=== PATIENT | male | born 1955 | race Caucasian/White ===

== ENCOUNTER 2017-06-11 09:09 | Observation (INO) | payer BC ==
[~2017-06-11 09:09] MED LIST: EPHEDrine SULFATE 50 MG/5 ML SYG; LIDOCAINE 2% (SDV) 5 ML INJ
[2017-06-11] MEDS ORDERED: CEFAZOLIN 2 GM/50 ML (PMX) 50 ML IVPB (10:30)
[2017-06-11] MEDS ORDERED: LACTATED RINGER'S 1,000 ML IV* (10:30)
[2017-06-11] MEDS ORDERED: SUCCINYLCHOLINE CHLORIDE 100 MG/5 ML SYG IV (10:52)
[2017-06-11] MEDS ORDERED: ROCURONIUM 50 MG INJ ×2 (10:52→14:32)
[2017-06-11] MEDS ORDERED: MIDAZOLAM 1 MG/ML 2 ML INJ (10:52)
[2017-06-11] MEDS ORDERED: PROPOFOL 20 ML (10:52)
[2017-06-11] MEDS ORDERED: CEFAZOLIN 1 GM INJ (11:14)
[2017-06-11] MEDS ORDERED: DEXAMETHASONE 4 MG/ML 1 ML INJ (11:29)
[2017-06-11] MEDS ORDERED: FAMOTIDINE 20 MG INJ (11:29)
[2017-06-11] MEDS ORDERED: ONDANSETRON 4 MG INJ (11:29)
[2017-06-11] MEDS ORDERED: ACETAMINOPHEN 1000MG/100ML IV 0 ML (11:29)
[2017-06-11] MEDS ORDERED: PHENYLephrine (100 MCG/ML) 5ML SYG (11:30)
[2017-06-11] MEDS ORDERED: VASOPRESSIN 20 UNITS INJ (11:38)
[2017-06-11] MEDS: BUPIVACAINE 0.25% (MPF) 30 ML INJ (11:39)
[2017-06-11] MEDS: GELATIN SIZE 100 SPONGE (11:39)
[2017-06-11] MEDS: LIDOCAINE 1%/EPI 30 ML INJ (11:39)
[2017-06-11] MEDS: BETAMET NA PHOS/AC(6 MG/ML) 5ML INJ (11:39)
[2017-06-11] MEDS: POLYMYXIN/BACITRACIN 1L IRRIG (11:39)
[2017-06-11] MEDS: THROMBIN 5000 UNIT VIAL ×2 (11:39→14:17)
[2017-06-11] MEDS ORDERED: THROMBIN(HUM PLAS)/FIBRINOG/CA 5 ML VIAL TOP (13:05)
[2017-06-11] MEDS ORDERED: SUGAMMADEX SODIUM 200 MG/2 ML VIAL IV (14:32)
[2017-06-11] MEDS ORDERED: ACETAMINOPHEN 325 MG TAB PO (15:00)
[2017-06-11] MEDS ORDERED: NALOXONE (0.4 MG/ML) INJ IV (15:00)
[2017-06-11] MEDS ORDERED: ONDANSETRON 4 MG INJ IV ×2 (15:00→15:30)
[2017-06-11] MEDS ORDERED: PROCHLORPERAZINE 10 MG TAB PO (15:00)
[2017-06-11] MEDS ORDERED: NACL 0.9% 3 ML SYG IV (15:00)
[2017-06-11] MEDS: HYDROmorphONE (0.2 MG/ML) 10ML SYG IV ×3 (15:21→15:34)
[2017-06-11] MEDS: LORAZEPAM 2 MG INJ IV (15:21)
[2017-06-11] MEDS ORDERED: LABETALOL HCL 20MG INJ IV (15:30)
[2017-06-11] MEDS ORDERED: hydrALAzine 20 MG INJ IV (15:30)
[2017-06-11] MEDS ORDERED: HYDROmorphONE (0.2 MG/ML) 10ML SYG IV (15:30)
[2017-06-11] MEDS ORDERED: DIPHENHYDRAMINE 50 MG INJ IV (15:30)
[2017-06-11] MEDS: HYDROmorphONE 0.5 MG/0.5 ML SYG IV ×4 (16:27→23:10)
[2017-06-11] MEDS: HYDROCODONE/APAP (5/325) TAB PO (17:07)
[2017-06-11] MEDS: CEFAZOLIN 1 GM/50 ML (PMX) 50 ML IVPB ×2 (18:28→23:10)
[2017-06-11] MEDS ORDERED: traZODone 50 MG TAB PO (19:00)
[2017-06-11] MEDS: ATORVASTATIN 20 MG TAB PO (20:13)
[2017-06-11] MEDS: ALPRAZOLAM 1 MG TAB PO (20:13)
[2017-06-11] MEDS: TAMSULOSIN (SR) 0.4 MG CAP PO (20:13)
[2017-06-11] MEDS: DULOXETINE 30 MG CAP DR PO (20:13)
[2017-06-11] MEDS: LISINOPRIL 20 MG TAB PO (20:14)
[2017-06-11] MEDS: SOD CHLORIDE 0.45% 1,000 ML IV (20:15)
[2017-06-11] MEDS: CYCLOBENZAPRINE 10 MG TAB PO (23:10)
[2017-06-12] MEDS: HYDROCODONE/APAP (5/325) TAB PO ×5 (01:29→22:20)
[2017-06-12] MEDS: LORAZEPAM 2 MG INJ IV (02:10)
[2017-06-12] MEDS: SOD CHLORIDE 0.45% 1,000 ML IV ×3 (05:00→22:12)
[2017-06-12] MEDS: CEFAZOLIN 1 GM/50 ML (PMX) 50 ML IVPB ×2 (05:15→11:31)
[2017-06-12 05:16] LABS: ADD MAN DIFF? NO
[2017-06-12 05:26] LABS: WHITE BLOOD COUNT 11.7 10^3/ul (4.8-10.8)
[2017-06-12 05:26] LABS: BASOPHILS % 0.2 % (0.0-2.0); EOSINOPHILS % 0.1 % (0.0-7.0); HEMATOCRIT 42.8 % (42.0-52.0); HEMOGLOBIN 15.2 g/dl (14.0-18.0); LYMPHOCYTES # 1.8 10^3/ul (0.8-2.9); LYMPHOCYTES % 15.5 % (15.0-51.0); MEAN CORPUSCULAR HGB CONC 35.5 g/dl (32.0-37.0); MEAN CORPUSCULAR VOLUME 87.3 fl (82.0-101.0); MEAN PLATELET VOLUME 9.3 fl (7.4-10.4); MONOCYTE # 1.1 10^3/ul (0.3-0.9); MONOCYTES % 9.5 % (0.0-11.0); NEUTROPHIL # 8.7 10^3/ul (1.6-7.5); NEUTROPHILS % 74.3 % (39.0-77.0); PLATELET COUNT 208 10^3/UL (140-415); RED CELL DISTRIBUTION WIDTH 11.7 % (11.5-14.5)
[2017-06-12 06:09] LABS: ALANINE AMINOTRANSFERASE 26 IU/L (13-69); ALBUMIN 4.1 g/dl (3.3-4.9); ALBUMIN/GLOBULIN RATIO 1.46; ALKALINE PHOSPHATASE 63 IU/L (42-121); ANION GAP 18 (8-16); ASPARTATE AMINO TRANSFERASE 33 IU/L (15-46); BILIRUBIN,INDIRECT 1.1 mg/dl (0-1.1); BILIRUBIN,TOTAL 1.1 mg/dl (0.2-1.3); BLOOD UREA NITROGEN 14 mg/dl (7-20); CALCIUM 9.6 mg/dl (8.4-10.2); CARBON DIOXIDE 29 mmol/L (21-31); CHLORIDE 103 mmol/L (97-110); CREATININE 0.86 mg/dl (0.61-1.24); GLUCOSE 130 mg/dl (70-220); POTASSIUM 4.8 mmol/L (3.5-5.1); SODIUM 145 mmol/L (135-144); TOTAL PROTEIN 6.9 g/dl (6.1-8.1)
[2017-06-12] MEDS: DULOXETINE 30 MG CAP DR PO (08:28)
[2017-06-12] MEDS: LISINOPRIL 20 MG TAB PO (08:28)
[2017-06-12] MEDS: CYCLOBENZAPRINE 10 MG TAB PO (13:50)
[2017-06-12] MEDS: DIAZEPAM 5 MG TAB PO ×2 (14:34→22:04)
[2017-06-12] MEDS: DEXAMETHASONE 10 MG/ML 1 ML INJ IV (18:19)
[2017-06-12] MEDS: TAMSULOSIN (SR) 0.4 MG CAP PO (22:03)
[2017-06-12] MEDS: ATORVASTATIN 20 MG TAB PO (22:04)
[2017-06-13] MEDS: DEXAMETHASONE 10 MG/ML 1 ML INJ IV (02:13)
[2017-06-13] MEDS: DIAZEPAM 5 MG TAB PO ×2 (05:58→09:55)
[2017-06-13] MEDS: HYDROCODONE/APAP (5/325) TAB PO ×2 (06:01→08:38)
[2017-06-13] MEDS: LISINOPRIL 20 MG TAB PO (08:38)
[2017-06-13] MEDS: DULOXETINE 30 MG CAP DR PO (08:38)
[2017-06-13] MEDS: SOD CHLORIDE 0.45% 1,000 ML IV (11:00)
[2017-06-13] MEDS ORDERED: DIAZEPAM 5 MG TAB PO (21:00)
[2017-06-14] MEDS ORDERED: DIAZEPAM 5 MG TAB PO (06:00)
== END 2017-06-13 16:10 | disposition home or self-care (01) ==
LOC: SDS 09:09 → REC 15:25 → MS1 16:12
DX: M51.16 Intervertebral disc disorders with radiculopathy, lumbar region (principal); M48.061 Spinal stenosis, lumbar region without neurogenic claudication; G97.41 Accidental puncture or laceration of dura during a procedure
CPT/HCPCS: 63030; 72100; 80053; 85025; 87086; 88304; 97116; 97161; 97530